=== PATIENT | female | born 2000 | race Caucasian/White ===

== ENCOUNTER 2020-05-06 19:50 | Emergency (ER) | payer BC ==
[2020-05-06] MEDS ORDERED: Fluorescein Opthalmic Strip ONE (19:59)
[2020-05-06] MEDS ORDERED: Tetracaine 0.5% PF 4 ML BOT ONE (20:00)
[2020-05-06] MEDS ORDERED: Erythromycin Base 0.5% Oint 1 GM TUBE ONE (20:25)
== END 2020-05-06 20:33 | disposition home or self-care (01) ==
LOC: CSHERS 19:50
DX: S05.01XA Injury of conjunctiva and corneal abrasion without foreign body, right eye, initial encounter (principal); Z87.891 Personal history of nicotine dependence; X58.XXXA Exposure to other specified factors, initial encounter
CPT/HCPCS: 99283